=== PATIENT | female | born 1995 | race African-American/Black ===

== ENCOUNTER 2018-07-14 10:14 | Emergency (ER) | payer MEDICAID ==
[~2018-07-14] VITALS: Ht 157.5 cm; Wt 69.0 kg
[2018-07-14 11:57] VITALS: BP 110/70
== END 2018-07-14 11:58 | disposition home or self-care (01) ==
LOC: ER 10:14
DX: S61.411D Laceration without foreign body of right hand, subsequent encounter (principal); X58.XXXD Exposure to other specified factors, subsequent encounter
CPT/HCPCS: 99283

== ENCOUNTER 2018-07-18 16:19 | Emergency (ER) | payer MEDICAID ==
[~2018-07-18] VITALS: Ht 157.5 cm; Wt 68.0 kg
[2018-07-18 18:25] VITALS: BP 110/76
== END 2018-07-18 20:30 | disposition left against medical advice (07) ==
LOC: ER 16:19
DX: Z53.21 Procedure and treatment not carried out due to patient leaving prior to being seen by health care provider (principal)